=== PATIENT | female | born 1980 | race Caucasian/White ===

== ENCOUNTER 2023-02-11 10:12 | Outpatient (OUT) | payer OTHER, SELFPAY ==
--- NOTE | 2023-02-11 10:21 | MM_ITS ---
Patient: NISREEN CONCEPCION Exam Date: 02/11/2023 : 1980 Gender:F Ordering : DR AIDAN BEGUM Admission #: [id number] Family : Order #: [id number] CLICK HERE TO VIEW EXAM RADIOLOGY REPORT PROCEDURE: MM TOMOSYNTHESIS SCREENING BI COMPARISON: None. INDICATIONS: Screening mammogram Z12.31 Calculator Name NCI Breast Cancer Risk Assessment Tool 5 Year Breast Cancer Risk 0.40% Lifetime Breast Cancer Risk 7.30% Personal Breast Cancer No Personal Ovarian Cancer No Treatments None Family Cancers None LOCATION: [facility] BREAST COMPOSITION: Extremely dense, which lowers the sensitivity of mammography. FINDINGS: DIAGNOSTIC CATEGORY 1--NEGATIVE. RIGHT BREAST: No significant suspicious finding. LEFT BREAST: No significant suspicious finding. RECOMMENDATIONS: ROUTINE MAMMOGRAM AND CLINICAL EVALUATION IN 12 MONTHS. PLEASE NOTE: A NORMAL MAMMOGRAM DOES NOT EXCLUDE THE POSSIBILITY OF BREAST CANCER. A CLINICALLY SUSPICIOUS PALPABLE LUMP SHOULD BE BIOPSIED. Dictated by: Mickey Jackson M.D. on 02/11/2023 at 15:11 Approved by: Mickey Jackson M.D. on 02/11/2023 at 15:22
== END 2023-02-11 10:13 ==
LOC: MAMMO 10:15
PROVIDERS: PCP Family Medicine; Visit Provider Family Medicine
DX: Z12.31 Encounter for screening mammogram for malignant neoplasm of breast (principal)
CPT/HCPCS: 77063; 77067

== ENCOUNTER 2024-08-11 08:52 | Outpatient (OUT) | payer OTHER, SELFPAY ==
--- NOTE | 2024-08-11 08:57 | MM_ITS ---
Patient Name: NISREEN CONCEPCION MR#: [id number] : 1980 Exam Date: 08/11/2024 Ordering Doctor: DR AIDAN BEGUM RADIOLOGY REPORT PROCEDURE: MM TOMOSYNTHESIS SCREENING BI COMPARISON: MM TOMOSYNTHESIS SCREENING BI, 02/11/2023. INDICATIONS: Screening Calculator Name NCI Breast Cancer Risk Assessment Tool 5 Year Breast Cancer Risk 0.50% Lifetime Breast Cancer Risk 7.20% Personal Breast Cancer No Personal Ovarian Cancer No Treatments None Family Cancers None LOCATION: [facility] BREAST COMPOSITION: The breasts are extremely dense, which lowers the sensitivity of mammography. FINDINGS: DIAGNOSTIC CATEGORY 2--BENIGN FINDING. NO CHANGE FROM COMPARISON. Scattered benign-appearing lymph nodes are present. RIGHT BREAST: No significant suspicious finding. LEFT BREAST: No significant suspicious finding. RECOMMENDATIONS: ROUTINE MAMMOGRAM AND CLINICAL EVALUATION IN 12 MONTHS. PLEASE NOTE: A NORMAL MAMMOGRAM DOES NOT EXCLUDE THE POSSIBILITY OF BREAST CANCER. A CLINICALLY SUSPICIOUS PALPABLE LUMP SHOULD BE BIOPSIED. Dictated by: Thom Huston MD on 08/11/2024 at 09:53 Approved by: Thom Huston MD on 08/11/2024 at 09:55
== END 2024-08-11 08:53 | disposition home or self-care (01) ==
LOC: MAMMO 08:52
PROVIDERS: PCP Family Medicine; Visit Provider Family Medicine
DX: Z12.31 Encounter for screening mammogram for malignant neoplasm of breast (principal)
CPT/HCPCS: 77063; 77067